=== PATIENT | female | born 1960 | race Caucasian/White ===

== ENCOUNTER 2022-09-23 13:48 | Inpatient (IN) | payer SELFPAY ==
[~2022-09-23] VITALS: Ht 167.6 cm; Wt 76.2 kg
[~2022-09-23 13:48] MED LIST: ASPIRIN 81M81 MG/TA2 PO; DEXTROSE 525 GM/50 M IV; DEXTROSE PO; GLUCAGEN1 MG IM; GLUCOPHAGE500 MG/TAB PO; MICATIN2% TP; NOVOLOG 100U100 U/M1 SQ; ROCEPHIN 2GM VIAL21 IV; TYLENOL 325MG325 MG PO
[2022-09-23 13:56] VITALS: BP 160/67; PULSE 86; TEMP 98.5
[2022-09-23 13:57] VITALS: BP_SYST 160
--- NOTE | 2022-09-23 13:57 | NUR ---
New pt arrived to unit from Medical unit. Pt is a/o x4 with flat affect. 3 sons are at the bedside. Valuable items denied. Skin is intact. Red/purple bruising noted to left antecubital area - pt states she had some labs drawn from this site. Rt. IJ IV was dc'd prior to admission to [facility] today - gauze/tegaderm dressing is CDI. Masters cath was dc'd this morning prior to [facility] admission and pt has voided once per nursing report. Pt wears glasses but left them at home. Orientation provided to room/unit. Pt had questions. OT in room to eval patient and give bed bath. Call light is in reach. Bed alarm is on.
--- NOTE | 2022-09-23 14:29 | NUR ---
AIVS here to place IV to continue IV abx as ordered.
[2022-09-23 14:35] VITALS: BP 151/67
--- NOTE | 2022-09-23 15:04 | NUR ---
PT in room to eval patient
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
[2022-09-23 16:46] VITALS: BP_SYST 151
[2022-09-23 16:53] VITALS: BP 149/67; PULSE 95; TEMP 98.9
[2022-09-23 21:00] VITALS: BP_SYST 149
[2022-09-24] VITALS (7 sets, daily range): BP systolic 121–149; BP diastolic 63–69; PULSE 83–89; TEMP 98.2–98.6
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
--- NOTE | 2022-09-24 20:00 | NUR ---
PT IN BR. HAVING LIQUID STOOLS. SONS HERE VISITING VERY SUPPORTIVE. THEY RELATE MOTHER IS LIVING WITH THEM NOW. ENC PT TO USE CALL LIGHT IN BR WHEN FINISHED. NOT TO GET UP BY SELF. HAD TO CHANGE BRIEFS- SMALL AMT OF STOOL LEAKAGE.
--- NOTE | 2022-09-24 20:23 | NUR ---
GAVE TYLENOL FOR RLQ ABD DISCOMFORT. NO TENDERNESS.
--- NOTE | 2022-09-24 21:00 | NUR ---
NOTIFIED JOSEFINA RUSH REGARDING LIQUID STOOLS. SEE ORDER FOR GI PANEL.
--- NOTE | 2022-09-25 02:07 | NUR ---
PT HAS BEEN SLEEPING. NO DISTRESS. NO FURTHER DIARRHEA.
[2022-09-25 05:54] VITALS: BP 144/66; PULSE 89; TEMP 98.5
[2022-09-25 07:07] VITALS: BP_SYST 144
--- NOTE | 2022-09-25 07:08 | NUR ---
Shift report received from social welfare clerk RN. SBA provided as pt stood from bed and ambulated to toilet using a FWW. Pt continent of urine and loose stool. Spec collected and sent to lab for GI panel. Result is pending.
--- NOTE | 2022-09-25 10:25 | NUR ---
PT in room working with pt. She remains on contact precautions pending C. Diff test result. GI panel negative for all strains.
--- NOTE | 2022-09-25 10:39 | NUR ---
Pt is off the unit for Group Therapy.
[2022-09-25 11:05] LABS: CLOSTRIDIUM DIFF A/B NEG
[2022-09-25 17:21] VITALS: BP 102/89; PULSE 100; TEMP 99.1
--- NOTE | 2022-09-25 17:47 | NUR ---
Pt sitting up in bed, eating dinner. Coccyx noted to be red but intact by slot shift supervisor RN. Waffle overlay placed on mattress this morning. C. Diff cx negative - contact precautions removed. Pt's two sons are at the bedside. Pt denies pain/discomfort. Denies other needs. Call light is in her reach. Bed alarm is on.
--- NOTE | 2022-09-25 19:00 | NUR ---
RECEIVED CHANGE OF SHIFT REPORT FROM DAY SHIFT RN.
--- NOTE | 2022-09-26 03:18 | NUR ---
PATIENT SLEEPING, DOES NOT WAKE DURING NURSING ROUNDS. EXIT ALARM ON, CALL LIGHT IN REACH. HAD FREQUENT LOOSE STOOLS PASSED PRIOR TO HS BUT HAS HAD NO ADDITIONAL LOOSE STOOLS PASSED SINCE BEDTIME THUS FAR. BREATHING NONLABORED AT THIS TIME.
[2022-09-26 05:45] VITALS: BP 124/58; PULSE 89; TEMP 99
[2022-09-26 06:47] LABS: BASO # 0.1 K/mm3 (0.0-0.2); BASO % 0.6 % (0.0-2.0); EOS % 0.4 % (0.0-4.0); GRAN # 8.7 K/mm3 (1.4-6.5); GRAN % 83.5 % (42.2-75.2); LYMPH # 0.9 K/mm3 (1.2-3.4); LYMPH % 8.8 % (20.0-51.0); MEAN CELL VOLUME 86 fl (80.0-100.0); MEAN CORPUSCULAR HGB CONC 33 g/dl (33.0-37.0); MEAN PLATELET VOLUME 9.9 fl (7.4-10.4); MONO # 0.6 K/mm3 (0.1-0.6); MONO % 5.5 % (1.7-9.3); RED BLOOD COUNT 2.83 M/mm3 (4.10-5.30); REDCELL DISTRIBUTION WIDTH-CV 12.8 % (11.5-14.5)
[2022-09-26 06:52] LABS: HEMATOCRIT 24.3 % (37.0-47.0); MEAN CORPUSCULAR HEMOGLOBIN 28 pg (27-31); PLATELET COUNT 369 K/mm3 (130-400)
[2022-09-26 07:09] LABS: C-REACTIVE PROTEIN 14.96 mg/dL (0.00-0.50); CALCIUM 8.1 mg/dL (8.4-10.2); CREATININE, serum 1.07 mg/dL (0.57-1.11); MAGNESIUM 1.5 mg/dL (1.6-2.6); POTASSIUM 4.4 mmol/L (3.5-4.5)
--- NOTE | 2022-09-26 07:22 | NUR ---
CHANGE OF SHIFT REPORT GIVEN TO DAY SHIFT RNROSA ISELA.
--- NOTE | 2022-09-26 12:40 | NUR ---
(late entry 09/25/22) SW met with patient to present patient with team conference notes. Notes reviewed with patient. All questions answered
--- NOTE | 2022-09-26 13:50 | NUR ---
Admission QIM scores were reviewed by the team. Code of 5 chosen for eating was determined by team discussion to be the most usual performance before interventions for this patient during the assessment period. Code of 4 chosen for oral hygiene was determined by team discussion to be the most usual performance before interventions for this patient during the assessment period. Code of 3 chosen for toileting hygiene was determined by team discussion to be the most usual performance before interventions for this patient during the assessment period. Code of 88 chosen for toilet transfers was determined by team discussion to be the most usual performance before interventions for this patient during the assessment period. Code of 3 chosen for shower/bathe self was determined by team discussion to be the most usual performance before interventions for this patient during the assessment period. Code of 2 chosen for lower body dressing was determined by team discussion to be the most usual performance before interventions for this patient during the assessment period. Code of 2 chosen for putting on/taking off footwear was determined by team discussion to be the most usual performance before interventions for this patient during the assessment period. Code of 88 chosen for walking 150 feet was determined by team discussion to be the most usual performance before interventions for this patient during the assessment period. Code of 3 chosen for rolling left to right was determined by team discussion to be the most usual performance before interventions for this patient during the assessment period. Code of 3 chosen for sit to lying was determined by team discussion to be the most usual performance before interventions for this patient during the assessment period. Code of 3 chosen for lying to sitting side of bed was determined by team discussion to be the most usual performance before interventions for this patient during the assessment period. Code of 3 chosen for sit to stand was determined by team discussion to be the most usual performance for this patient during the discharge assessment period. Code of 3 chosen for chair/bed to chair transfer was determined by team discussion to be the most usual performance before interventions for this patient during the assessment period.
--- NOTE | 2022-09-26 16:00 | NUR ---
PATIENT AWAKE AND ALERT, RESTING IN BED. CALL LIGHT WTIHIN REACH, BED ALARM ON. PATIENT DENIES ANY PAIN, NEEDS OR COMPLAINTS AT THIS TIME. PATIENTS SON AT BEDSIDE.
[2022-09-26 17:16] VITALS: BP 146/63; PULSE 92; TEMP 98.6
[2022-09-26 19:25] VITALS: BP_SYST 146
[2022-09-27 05:03] VITALS: BP 125/58; PULSE 95; TEMP 97.8
--- NOTE | 2022-09-27 07:03 | NUR ---
Shift report received from production drilling machine operator RN. Pt awake and resting supine in bed. She denies pain\discomfort, denies abd pain or nausea. She reports continued looser stools. OT in room to assist w/ shower. Call light is in her reach.
[2022-09-27 07:12] VITALS: BP_SYST 125
--- NOTE | 2022-09-27 08:31 | NUR ---
Pt is off the unit for PT.
--- NOTE | 2022-09-27 09:09 | NUR ---
Pt resting supine in bed after returning from PT. She denies pain/discomfort. Denies other needs. Call light is in her reach. Bed alarm is on.
--- NOTE | 2022-09-27 10:17 | NUR ---
Pt is off the unit for Group Therapy.
[2022-09-27 16:30] VITALS: BP 152/74; PULSE 97; TEMP 99.1
--- NOTE | 2022-09-27 17:20 | NUR ---
Pt sitting up in bed to eat dinner. Sons are at the bedside. Pt denies pain/discomfort. Denies other needs. Call light in her reach. Bed alarm is on.
[2022-09-27 19:10] VITALS: BP_SYST 152
[2022-09-28 05:10] VITALS: BP 127/61; PULSE 88; TEMP 97.4
[2022-09-28 07:04] VITALS: BP_SYST 127
--- NOTE | 2022-09-28 07:05 | NUR ---
Shift report received from assembler 1st shift RN. SBA provided as pt stood from bed and ambulated to the bathroom using a FWW. Pt was continent of urine and a small loose BM. She denies pain or discomfort. Denies other needs. Call light is in her reach. Bed alarm is on.
--- NOTE | 2022-09-28 10:51 | NUR ---
Pt sleeping supine in bed. Respirations are even & unlabored. Call light is in her reach. Bed alarm is on.
[2022-09-28 18:14] VITALS: BP 161/70; PULSE 93; TEMP 100.1
[2022-09-28 18:33] VITALS: TEMP 99.4
--- NOTE | 2022-09-28 18:35 | NUR ---
Temp noted to be 100.1 orally approx 30 minutes ago. Temp rechecked at 99.4 orally. Pt denies feeling feverish or ill. Reports having some intermittent nausea this morning w/o vomiting or abd. pain. Pt reporting bilat foot pain at 4/10 pain scale. Tylenol given per PRN order.
--- NOTE | 2022-09-28 19:04 | NUR ---
RECEIVED CHANGE OF SHIFT REPORT FROM DAY SHIFT RN. PATIENT RESTING IN BED, FAMILY IN ROOM. EXIT ALARM ON, CALL LIGHT IN REACH. DENIES ANY NEEDS AT THIS TIME.
--- NOTE | 2022-09-28 22:11 | NUR ---
PATIENT REPORTING INTERMITTANT NAUSEA THROUGHOUT THE DAY TODAY. CONTACTED HEDGE FUND ACCOUNTANT PROVIDER, REPORTING PATIENT COMPLAINT OF NAUSEA. PHONE ORDER GIVEN FOR ZOFRAN ODT EVERY 6 HR PRN NAUSEA.
--- NOTE | 2022-09-28 22:59 | NUR ---
PATIENT SLEEPING, DOES NOT WAKE DURING NURSING ROUNDS. EXIT ALARM ON, CALL LIGHT IN REACH, BREATHING NONLABORED AND EVEN.
[2022-09-29 05:19] VITALS: BP 131/69; PULSE 86; TEMP 98.5
--- NOTE | 2022-09-29 07:30 | NUR ---
CHANGE OF SHIFT REPORT GIVEN TO DAY SHIFT RNJUANA.
--- NOTE | 2022-09-29 15:43 | NUR ---
WINSTON met with the patient to follow up after the weekend. The patient was lying in bed. She states that she is doing okay and that therapy has been pretty tiring and hard so far. She had no concerns for SW at this time.
[2022-09-29 17:01] VITALS: BP 142/69; PULSE 89; TEMP 98.3
[2022-09-29 19:00] VITALS: BP_SYST 142
--- NOTE | 2022-09-29 23:49 | NUR ---
WHILE TAKING PT TO THE BATHROOM, IT WAS NOTED THAT BM WAS A LITTLE BIT JELLY-LIKE. HOSPITALIST MANAGER RESOURCE CONTACTED FOR C. DIFF TEST AND CONTACT ISOLATION ORDERS. PT AND CNAS NOTIFIED.
[2022-09-30 05:26] VITALS: BP 122/60; PULSE 90; TEMP 97.4
[2022-09-30 06:49] LABS: BASO # 0.1 K/mm3 (0.0-0.2); BASO % 1.2 % (0.0-2.0); EOS # 0.1 K/mm3 (0.0-0.7); GRAN # 8.1 K/mm3 (1.4-6.5); GRAN % 74.8 % (42.2-75.2); LYMPH # 1.7 K/mm3 (1.2-3.4); MEAN CELL VOLUME 85 fl (80.0-100.0); MEAN CORPUSCULAR HGB CONC 33 g/dl (33.0-37.0); MEAN PLATELET VOLUME 10.3 fl (7.4-10.4); MONO # 0.7 K/mm3 (0.1-0.6); MONO % 6.4 % (1.7-9.3); PLATELET COUNT 541 K/mm3 (130-400); RED BLOOD COUNT 2.47 M/mm3 (4.10-5.30); REDCELL DISTRIBUTION WIDTH-CV 12.6 % (11.5-14.5)
[2022-09-30 07:05] LABS: CALCIUM 7.9 mg/dL (8.4-10.2); CREATININE, serum 0.96 mg/dL (0.57-1.11); POTASSIUM 4.1 mmol/L (3.5-4.5)
[2022-09-30 07:06] VITALS: BP_SYST 122
[2022-09-30 07:36] LABS: HEMATOCRIT 20.9 % (37.0-47.0); HEMOGLOBIN 6.9 g/dl (12.5-16.0); MEAN CORPUSCULAR HEMOGLOBIN 28 pg (27-31)
--- NOTE | 2022-09-30 10:29 | NUR ---
NOTIFIED DR PAREKH OF CRITICAL HEMOGLOBIN. HE REQUESTED THE HOSPITALIST BE NOTIFIED ALSO. ORDER FOR ONE UNIT OF PRBC TO BE ADMINISTERED.
[2022-09-30 11:00] LABS: CLOSTRIDIUM DIFF A/B NEG
[2022-09-30 17:22] VITALS: BP 141/65; PULSE 100; TEMP 98.1
[2022-09-30 18:51] LABS: HEMATOCRIT 24.7 % (37.0-47.0)
[2022-09-30 19:00] VITALS: BP_SYST 141
--- NOTE | 2022-09-30 21:15 | NUR ---
Patient resting quietly in bed visiting with family. She is alert and oriented. Denies any pain or discomfort, although states she does feel a bit nauseous. PRN zofran administered prior to evening medications. RAC peripheral IV site is bruised but flushes well and without pain; blood return present. No further needs noted. Bed in lowest position, all alarms on. Call light within reach.
[2022-10-01 05:46] VITALS: BP 124/54; PULSE 65; TEMP 98
[2022-10-01 06:58] VITALS: BP_SYST 124
--- NOTE | 2022-10-01 06:59 | NUR ---
Shift report received from margin trimmer RN. Pt awake & lying supine in bed. She denies pain/discomfort. Denies other needs. Call light is in reach. Bed alarm is on.
[2022-10-01 07:07] LABS: HEMATOCRIT 21.5 % (37.0-47.0)
--- NOTE | 2022-10-01 11:06 | NUR ---
Pt resting supine in bed after returning from PT. She denies pain/discomfort. Denies other needs. Call light is in her reach. Bed alarm is on.
--- NOTE | 2022-10-01 14:53 | NUR ---
Initial visit; Patient requested that Operations Business Partner let [employer] know that she would prefer to not have a visit from them, that she cannot receive Holy Communion from the "new Restorationism's" that believe differently than she believes. Operations Business Partner said she would relay the message.
--- NOTE | 2022-10-01 15:32 | NUR ---
WINSTON attempted to contact the patient's son, Peyman, to review the IPR Team Conference Note. His mailbox was full, so WINSTON was unable to leave a voicemail. WINSTON then contacted the patient's son, Joseph, and reviewed the IPR Team Conference Note with him. The team has set a tentative discharge for next Thursday, 10/08, with outpatient PT/OT/ST. Due to the patient being self pay, the patient's son is agreeable to getting the patient scheduled at [facility] for the therapy. Joseph also confirms that the patient was planned to see Marcos Riley for primary care prior to being admitted. The team would like to schedule a patient/family meeting. Joseph states that he will touch base with his brother on when will work and then contact this SW back. WINSTON met with the patient to present and review the IPR Team Conference Note. The patient is in agreement to the discharge date and plan. A FWW, toilet riser, and shower bench or chair is also being recommended.
[2022-10-01 17:29] VITALS: BP 143/70; PULSE 143; PULSE 96; TEMP 98.8
--- NOTE | 2022-10-01 18:40 | NUR ---
RECEIVED CHANGE OF SHIFT REPORT FROM DAY SHIFT RN.
--- NOTE | 2022-10-02 01:08 | NUR ---
Patient sleeping, does not wake during nursing rounds. Breathing nonlabored and even. Exit alarms continues when up in chair or in bed with call light in reach. Patient denies chest pain/SOA so far this shift.
[2022-10-02 05:04] VITALS: BP 123/66; PULSE 101; TEMP 97.9
--- NOTE | 2022-10-02 06:37 | NUR ---
Change of shift report given to day shift RNCarmela.
[2022-10-02 06:54] VITALS: BP_SYST 123
--- NOTE | 2022-10-02 06:54 | NUR ---
Shift report received from night warehouse manager RN. Pt awake and resting supine in bed. She denies pain/discomfort. Reports sleeping well during the night. Denies other needs. Call light is in reach. Bed alarm is on.
[2022-10-02 07:01] LABS: BASO # 0.1 K/mm3 (0.0-0.2); BASO % 1.2 % (0.0-2.0); EOS # 0.1 K/mm3 (0.0-0.7); GRAN # 6.2 K/mm3 (1.4-6.5); GRAN % 70.1 % (42.2-75.2); LYMPH # 1.8 K/mm3 (1.2-3.4); LYMPH % 20.6 % (20.0-51.0); MEAN CELL VOLUME 85 fl (80.0-100.0); MEAN CORPUSCULAR HGB CONC 33 g/dl (33.0-37.0); MEAN PLATELET VOLUME 9.4 fl (7.4-10.4); MONO # 0.6 K/mm3 (0.1-0.6); MONO % 6.8 % (1.7-9.3); PLATELET COUNT 545 K/mm3 (130-400); RED BLOOD COUNT 2.55 M/mm3 (4.10-5.30); REDCELL DISTRIBUTION WIDTH-CV 12.8 % (11.5-14.5)
[2022-10-02 07:05] LABS: HEMATOCRIT 21.7 % (37.0-47.0); HEMOGLOBIN 7.1 g/dl (12.5-16.0); MEAN CORPUSCULAR HEMOGLOBIN 28 pg (27-31)
--- NOTE | 2022-10-02 10:36 | NUR ---
SBA provided as pt stood from bed and ambulated to the bathroom w/ FWW. Pt was incontinent of urine in pull-up brief and continent of a loose stool x 1. She denies nausea or abd. pain at this time. She also denies any general pain or discomfort. After toileting, pt escorted off unit via wheelchair (at her request) for Group Therapy.
--- NOTE | 2022-10-02 11:53 | NUR ---
Pt back in bed after returning from Group Therapy. She is reporting bilateral foot pain at 2-3 on 10 scale. Tylenol offered and declined by the pt at this time. Will continue to monitor. She denies other needs. Call light is in reach. Bed alarm is on.
--- NOTE | 2022-10-02 13:32 | NUR ---
WINSTON contacted the patient's son, Joseph, to follow up about the patient/family meeting. Joseph states that a patient/family meeting will work tomorrow, 10/03, at 0930. He states that his brother, Peyman, will be able to attend in person as well. WINSTON updated IPR Director. WINSTON contacted and faxed the FWW order to Ben at [facility].
[2022-10-02 17:29] VITALS: BP 128/70; PULSE 95; TEMP 98.2
[2022-10-02 18:30] VITALS: BP_SYST 128
--- NOTE | 2022-10-02 20:30 | NUR ---
PT RESTING IN BED. SONS AT BEDSIDE. VERY SUPPORTIVE. PT STILL HAVING RUQ DISCOMFORT. TENDER TO PALPATION. HAVING GASTRIC REFLUX. NOTIFIED MACKENZIE BERNABE. NEW ORDER FOR PROTNIX AND MAALOX. PT ASSISTED TO BR WITH WALKER. HAD MORE LOOSE STOOL. GAVE IMMODIUM. GAVE TYLENOL FOR RUQ DISCOMFORT. NOTED LT ARM EDEMA. INT TO RT F/A. FLUSHES WELL. ENC ELEVATION. RADIAL PULSE STRONG. CALL LIGHT IN REACH. BED ALARM SET.
--- NOTE | 2022-10-03 05:08 | NUR ---
ASSISTED PT TO BR WITH WALKER. HAD ANOTHER LOOSE STOOL. GAVE IMMODIUM. HAVING RT LOWER QUAD ABD DISCOMFORT. GAVE TYLENOL.
[2022-10-03 05:14] VITALS: BP 142/67; PULSE 96; TEMP 97.9
[2022-10-03 07:05] VITALS: BP_SYST 142
--- NOTE | 2022-10-03 12:39 | NUR ---
SW attended the patient/family meeting. The patient's sons': Peyman and Joseph were at bedside. Also present was IPR Director, Dr. Rosales, PT, OT, and ST. Dr. Rosales began by explaining the purpose of the meeting and then provided a medical update. PT/OT/ST discussed the patient's progress so far. IPR Director reiterated the plan for discharge next Thursday with outpatient PT/OT/ST. The patient and her sons are in agreement to the plan. The team answered all questions. The patient's son, Peyman, would like to connect with financial counseling for assistance and questions about Medicare. WINSTON provided Peyman with Financial Counselor, Trent', phone number. WINSTON also contacted Trent to inform her that the patient's sons were here and their questions. WINSTON attempted to contact [facility] [place] to set up the appointments. WINSTON left them a voicemail.
[2022-10-03 19:00] VITALS: BP_SYST 142
--- NOTE | 2022-10-04 04:46 | NUR ---
1 EPISODE OF BOWEL INCONTINENCE, LOOSE STOOL. ASSISTED WITH CLEAN UP. COCCYX APPEARS NORMAL WITH A SMALL AMOUNT OF REDDENED AREA IN GLUTEAL CLEFT. BARRIER CREAM APPLIED. PT'S SON TOOK DIRTY LAUNDRY TO WASH HOME WITH HIM. PRN TYLENOL GIVEN AT HS FOR BILATERAL FOOT PAIN.
[2022-10-04 06:21] VITALS: BP 135/63; PULSE 97; TEMP 99.3
[2022-10-04 06:44] VITALS: BP_SYST 135
--- NOTE | 2022-10-04 10:59 | NUR ---
Cryogenics Repairer rounds: Cryogenics Repairer assisted Patient by clearing away the food tray so that there was more space on the bedside table. Patient stated that she is Temple and does not believe in salvation outside of the [facility]. Patient declined the Cryogenics Repairer's offer of a rosary and of prayer.
[2022-10-04 17:03] VITALS: BP 128/68; PULSE 98; TEMP 97.9
[2022-10-04 19:04] VITALS: BP_SYST 128
--- NOTE | 2022-10-04 20:00 | NUR ---
PT RESTING IN BED. VISITING WITH SONS. PT REMIANS WEAK. REQUEST YLENOL FOR LLQ ABD DISCOMFORT W/ EVENING MEDS. LOOSE STOOLS HAVE LESSENED. NO OTHER NEEDS. CALL LIGHT IN REACH. BED ALARM SET.
[2022-10-05 05:53] VITALS: BP 143/71; PULSE 100; TEMP 98.9
[2022-10-05 06:39] VITALS: BP_SYST 143
[2022-10-05 17:41] VITALS: BP 142/71; PULSE 101; TEMP 98.5
--- NOTE | 2022-10-05 18:02 | NUR ---
PATIENT ALERT AND ORIENTED X4. ACHS BLOOD SUGARS. NO INSULIN NEEDED. PATIENTS FAMILY BROUGHT HER DINNER. NO NEW CONCERNS.
[2022-10-05 19:00] VITALS: BP_SYST 142
--- NOTE | 2022-10-05 20:30 | NUR ---
PT RESTING IN BED. SONS AT BEDSIDE. ASSISTED TO BR. HAD MOD LIQ BROWN STOOL. IMMODIUM GIVEN. DECLINED TYLENOL. ORAL CARE COMPLETE BY PT. BACK TO BED. HOB ELEVATED. ACCUCHECK 175. SEE SSI GIVEN. PT VERBALIZED WORRY ABOUT THERAPY TOMORROW R/T HER WEAKNESS AND LOW BLOOD COUNT. PT REPORTS IT WEARS HER OUT SO BADLY. SHE HAS EXTREME FATIGUE. CALL LIGHT IN REACH. BED ALARM SET.
[2022-10-06 05:49] VITALS: BP 135/69; PULSE 105; TEMP 97.8
[2022-10-06 07:06] VITALS: BP_SYST 135
--- NOTE | 2022-10-06 08:50 | NUR ---
PATIENT ALERT AND ORIENTED X4. VSS. PATIENT HERE FOR DEBILITY/AMS. PATIENT DENIES ANY PAIN. IV TO LEFT FA, INT, FLUSHES WELL. PATIENT WAITING ON BREAKFAST, THERAPY IN ROOM. CALL LIGHT IN REACH.
[2022-10-06 13:12] LABS: BASO # 0.1 K/mm3 (0.0-0.2); EOS # 0.1 K/mm3 (0.0-0.7); GRAN # 7.1 K/mm3 (1.4-6.5); GRAN % 72.7 % (42.2-75.2); LYMPH # 1.9 K/mm3 (1.2-3.4); LYMPH % 19.2 % (20.0-51.0); MEAN CELL VOLUME 87 fl (80.0-100.0); MEAN CORPUSCULAR HGB CONC 32 g/dl (33.0-37.0); MEAN PLATELET VOLUME 9.3 fl (7.4-10.4); MONO # 0.5 K/mm3 (0.1-0.6); MONO % 5.2 % (1.7-9.3); PLATELET COUNT 283 K/mm3 (130-400); RED BLOOD COUNT 2.74 M/mm3 (4.10-5.30); REDCELL DISTRIBUTION WIDTH-CV 13.4 % (11.5-14.5)
[2022-10-06 13:25] LABS: CALCIUM 8.3 mg/dL (8.4-10.2); CREATININE, serum 1.21 mg/dL (0.57-1.11); MAGNESIUM 1.3 mg/dL (1.6-2.6); POTASSIUM 3.8 mmol/L (3.5-4.5)
[2022-10-06 13:39] LABS: HEMATOCRIT 23.7 % (37.0-47.0); HEMOGLOBIN 7.5 g/dl (12.5-16.0); MEAN CORPUSCULAR HEMOGLOBIN 27 pg (27-31)
[2022-10-06 17:22] VITALS: BP 139/73; PULSE 83; TEMP 97.9
--- NOTE | 2022-10-06 19:07 | NUR ---
RECEIVED CHANGE OF SHIFT REPORT FROM DAY SHIFT RN.
[2022-10-06 21:40] VITALS: BP 138/77; PULSE 121; TEMP 100
--- NOTE | 2022-10-06 21:40 | NUR ---
PATIENT COMPLAINING OF L CHEST DISCOMFORT, SOME SOA. VS TAKEN APICAL PULSE AT 121 RAPID RATE.
--- NOTE | 2022-10-06 22:23 | NUR ---
IV FLUIDS STOPPED PER VERBAL ORDER FROM ONCALL PROVIDER. SALINE LOCKED IV SITE.
--- NOTE | 2022-10-06 23:54 | NUR ---
CRITICAL LAB CALLED OF TROP 0.088, CALLED ONCALL PROVIDER WITH CRITICAL LABS, ORDERS TO BE ENTERED BY PROVIDER FOR IV LASIX AND LABS TO BE DRAWN IN AM.
[2022-10-07] VITALS (8 sets, daily range): BP systolic 112–135; BP diastolic 60–68; PULSE 101–120; TEMP 97.6–99.2
--- NOTE | 2022-10-07 00:47 | NUR ---
COMPLAINED OF SL L CHEST DISCOMFORT DURING REPOSITIONING FROM LAY TO SIT THEN SIT TO STAND THAT SUBSIDED WHEN SITTING ON SCD AND REPORTED NO FURTHER L CHEST DISCOMFORT WHEN BACK IN BED FROM BSC AT THIS TIME. OXYGEN CONTINUES PER NC.
--- NOTE | 2022-10-07 01:45 | NUR ---
VS CHECKED AFTER LASIX, SEE MEDITECH, PATIENT DENIES CHEST DISCOMFORT/SOA, "EVERYTHING FEELS GOOD" REPORTED BY PATIENT. OXYGEN CONTINUES INFORMED ONCALL PROVIDER OF CURRRENT VS WITH NO NEW ORDERS AT THIS TIME, TO CONTINUE TO MONITOR VS AND INFORMED PROVIDER OF NEXT SET OF VS AND PATIENT'S STATUS.
--- NOTE | 2022-10-07 04:22 | NUR ---
VS TAKEN, SEE MEDITECH, PATIENT CONTINUES TO DENY CHEST DISCOMFORT/SOA, OXYGEN CONTINUES AT 2L/NC. INFORMED ONCALL PROVIDER OF PATIENT'S STATUS WITH UPDATED VS. NO NEW ORDERS GIVEN AT THIS TIME.
[2022-10-07 07:00] LABS: CALCIUM 8.4 mg/dL (8.4-10.2); CREATININE, serum 1.15 mg/dL (0.57-1.11); POTASSIUM 3.6 mmol/L (3.5-4.5)
[2022-10-07 07:03] LABS: TROPONIN-I 0.135 ng/mL (0.00-0.033)
--- NOTE | 2022-10-07 07:06 | NUR ---
Shift report received from slot shift manager RN. Pt assisted to recliner by the night RN and is currently sitting up. She denies gen. pain/discomfort, chest pain, difficulty breathing. Fara from lab called to report troponin level of 0.135. Hospitalist notified. Pt denies other needs. Call light is in her reach. Chair alarm is on.
--- NOTE | 2022-10-07 13:35 | NUR ---
Has lack of transportation kept you from medical appts, meetings, work, or from getting things needed for daily living? NO How often do you feel lonely or isolated from those around you? NEVER Over the past 5 days, how much of the time has pain made it hard for you to sleep? OCCASIONALLY Over the past 5 days, how often have you limited your participation in therapy due to pain? RARELY/NOT AT ALL Over the past 5 days, how often have you limited your day-to-day activities because of pain? RARELY/NOT AT ALL
--- NOTE | 2022-10-07 16:55 | NUR ---
Archeology Professor and SW student met with Patient and family at bedside in IPR to follow-up on treatment goals and discuss discharge planning. Patient reports to have benefited from treatment and is ready to discharge on anticipated discharge date. Patient's son reports that he will schedule outpatient therapy with [email or web address] Patient's walker request has been sent to [facility]. Patient requests information of Medicare application. SW provided information on medicare process and will follow-up in AM to adress further questions reguarding Medicare.
--- NOTE | 2022-10-07 17:32 | NUR ---
Initial dose of Imdur given to pt. Purpose of drug and side effects discussed w/ the pt and her son Joseph. They had no further questions. Dr. Emery at the bedside. [place] drug handout given to pt.
--- NOTE | 2022-10-07 18:52 | NUR ---
Diabetic teaching provided to pt and her son re: fingerstick glucose check, use of a glucometer, SSI, and insulin administration. They verbalized understanding and will need further teaching.
--- NOTE | 2022-10-07 19:00 | NUR ---
RECEIVED CHANGE OF SHIFT REPORT FROM DAY SHIFT RN.
--- NOTE | 2022-10-07 19:29 | NUR ---
PATIENT REPORTS THAT SHE WAS SHORT OF BREATH DURING SUPPER WHILE UP IN CHAIR WHILE TALKING WITH HER FAMILY THAT SHE FELT SHE HAD TO STOPPED TALKING AND REST. DENIED CHEST DISCOMFORT OR CHEST PAIN AT THAT TIME. DENIES ANY CHEST DISCOMFORT OR PAIN CURRENTLY. VS TAKEN OBSERVING THAT APICAL PULSE IS 115 BUT PATIENT IS ON ROOM AIR.
--- NOTE | 2022-10-07 19:32 | NUR ---
PATIENT PLACED ON OXYGEN AT 2LPM/NC FOR COMFORT.
[2022-10-08 00:14] VITALS: BP 123/53; PULSE 120; TEMP 99.1
[2022-10-08 04:17] VITALS: BP 106/54; PULSE 101; TEMP 98.8
[2022-10-08 05:36] VITALS: BP 106/54; PULSE 101; TEMP 98.8
[2022-10-08 06:48] VITALS: BP_SYST 106
--- NOTE | 2022-10-08 06:48 | NUR ---
CHANGE OF SHIFT REPORT GIVEN TO DAY SHIFT RNSANJAY.
--- NOTE | 2022-10-08 06:49 | NUR ---
Shift report received from security shift manager RN. Pt sleeping supine in bed. HOB is slightly raised. Call light is in reach. Bed alarm is on.
--- NOTE | 2022-10-08 07:08 | NUR ---
Pt assisted to recliner by warehouse worker 2nd shift RN. Pt resting with both eyes closed and BLE elevated on the footrest. She denies pain/discomfort. Denies toileting needs at this time. ORA. Call light is in reach. Chair alarm is on.
[2022-10-08 07:14] VITALS: BP 111/64; PULSE 109; TEMP 97.9
[2022-10-08] MEDS ORDERED: FERROUS SU325 MG/TAB PO (09:01)
[2022-10-08] MEDS ORDERED: ASPIRIN 81M81 MG/TA2 PO (09:02)
[2022-10-08] MEDS ORDERED: NITROSTAT0.4 MG/TAB SL (09:02)
[2022-10-08] MEDS ORDERED: IMDUR 30MG30 MG/TAB PO (09:02)
[2022-10-08] MEDS ORDERED: GLUCOPHAGE500 MG/TAB PO (09:03)
[2022-10-08] MEDS ORDERED: IMODIUM 2MG CAPS2 MG PO (09:03)
[2022-10-08] MEDS ORDERED: PROTONIX 40MG T40 MG PO (09:03)
[2022-10-08] MEDS ORDERED: NEURONTIN300 MG/CAP PO (09:03)
--- NOTE | 2022-10-08 11:47 | NUR ---
DC Summary reviewed with pt and her sons, Peyman & Joseph. They had no further questions. Belongings were gathered by Sanchez. Valuables denied.
--- NOTE | 2022-10-08 12:58 | NUR ---
Pt escorted off unit by GIVER at approx 1215. Pt was accompanied by her two sons.
--- NOTE | 2022-10-09 13:35 | NUR ---
Discharge QIM scores were reviewed by the team. Code of 6 chosen for eating was determined by team discussion to be the most usual performance for this patient during the discharge assessment period. Code of 6 chosen for toileting hygiene was determined by team discussion to be the most usual performance for this patient during the discharge assessment period. Code of 6 chosen for toilet transfers was determined by team discussion to be the most usual performance for this patient during the discharge assessment period. Code of 6 chosen for lower body dressing was determined by team discussion to be the most usual performance for this patient during the discharge assessment period. Code of 6 chosen for sit to lying was determined by team discussion to be the most usual performance for this patient during the discharge assessment period. Code of 6 chosen for lying to sitting was determined by team discussion to be the most usual performance for this patient during the discharge assessment period. Code of 6 chosen for sit to stand was determined by team discussion to be the most usual performance for this patient during the discharge assessment period. Code of 6 chosen for chair to bed was determined by team discussion to be the most usual performance for this patient during the discharge assessment period. Code of 6 chosen for walking 10 feet was determined by team discussion to be the most usual performance for this patient during the discharge assessment period. Code of 6 chosen for walking 50 feet w/ 2 turns was determined by team discussion to be the most usual performance before interventions for this patient during the discharge assessment period. Code of 6 chosen for walking 150 feet was determined by team discussion to be the most usual performance for this patient during the discharge assessment period.--Cierra Garber,
== END 2022-10-08 12:15 | disposition home or self-care (01) | DRG 91 ==
PROVIDERS: Internal Medicine; Physician Assistant; Student in an Organized Health Care Education/Training Program; ADMIT Physical Medicine & Rehabilitation Sports Medicine
DX: G72.81 Critical illness myopathy (principal); A41.9 Sepsis, unspecified organism; G93.41 Metabolic encephalopathy; I21.A1 Myocardial infarction type 2; N12 Tubulo-interstitial nephritis, not specified as acute or chronic; E87.20 Acidosis, unspecified; G81.91 Hemiplegia, unspecified affecting right dominant side; K58.0 Irritable bowel syndrome with diarrhea; R53.81 Other malaise; R26.89 Other abnormalities of gait and mobility; B96.20 Unspecified Escherichia coli [E. coli] as the cause of diseases classified elsewhere; E11.42 Type 2 diabetes mellitus with diabetic polyneuropathy; E11.65 Type 2 diabetes mellitus with hyperglycemia; R29.810 Facial weakness; R47.81 Slurred speech; I10 Essential (primary) hypertension; M54.40 Lumbago with sciatica, unspecified side; G89.29 Other chronic pain; Z79.4 Long term (current) use of insulin; Z74.09 Other reduced mobility; Z79.899 Other long term (current) drug therapy; Z96.0 Presence of urogenital implants; D50.9 Iron deficiency anemia, unspecified; R11.0 Nausea
CPT/HCPCS: J0696; J1650; J1815; J1940; J3475; J7030